=== PATIENT | female | born 1950 | race Caucasian/White ===

== ENCOUNTER 2017-08-06 21:40 | Emergency (ER) | payer MEDICAID, OTHER ==
[~2017-08-06] VITALS: Ht 149.9 cm; Wt 54.4 kg
[2017-08-06 21:43] VITALS: BP_SYST 156
[2017-08-06] MEDS ORDERED: HYDROcodone/ACETAMIN 5-325 MG TAB (NORCO/ VICODIN) PO ONE (22:45)
[2017-08-07] MEDS ORDERED: HYDROcodone/ACETAMIN 5-325 MG TAB (NORCO/ VICODIN) PO ONE (00:15)
[2017-08-07 00:34] VITALS: BP_SYST 142
== END 2017-08-07 00:34 | disposition home or self-care (01) ==
LOC: SED 21:40
DX: S51.812A Laceration without foreign body of left forearm, initial encounter (principal); M06.9 Rheumatoid arthritis, unspecified; M19.90 Unspecified osteoarthritis, unspecified site; W18.09XA Striking against other object with subsequent fall, initial encounter; Y93.01 Activity, walking, marching and hiking; Y92.099 Unspecified place in other non-institutional residence as the place of occurrence of the external cause; Y99.8 Other external cause status
CPT/HCPCS: 73090; 99284

== ENCOUNTER 2019-08-07 00:15 | Inpatient (IN) | payer OTHER ==
[~2019-08-07] VITALS: Ht 149.9 cm; Wt 67.1 kg
[2019-08-07 00:22] VITALS: BP_SYST 109
[2019-08-07] MEDS ORDERED: NACL 0.9% 1,000 ML IV ONE (00:49)
[2019-08-07] MEDS ORDERED: ONDANSETRON HCL 4 MG/2 ML VIAL IVP ONE (01:00)
[2019-08-07] MEDS ORDERED: ACETAMINOPHEN 500 MG TABLET PO ONE (01:00)
[2019-08-07] MEDS ORDERED: CLINDAMYCIN 900 mg/50mL D5W 50 ML IV ONE (01:00)
[2019-08-07] MEDS ORDERED: MORPHINE 4 MG/ML INJ. SYRINGE IVP ONE (01:00)
[2019-08-07 01:44] LABS: HEMOGLOBIN 10.3 g/dL (12.0-16.0); MEAN CORPUSCULAR HEMOGLOBIN 28 pg (27-31); MEAN CORPUSCULAR HGB CONC 33 % (32-36); MEAN CORPUSCULAR VOLUME 84 fL (79.0-98.0); RED BLOOD CELL COUNT(AUTO) 3.69 MIL/uL (4.2-6.2); RED CELL DISTRIBUTION WIDTH 23.1 % (9.0-15.0); WHITE BLOOD COUNT (AUTO) 3.7 K/uL (4.8-10.8)
[2019-08-07 01:45] LABS: INR 1.1 (0.8-1.2); PROTHROMBIN TIME 11.2 SECS (9.5-12.5)
[2019-08-07 01:59] LABS: CALCIUM 8.7 mg/dL (8.4-11.0); CREATININE 1.67 mg/dL (0.55-1.30)
[2019-08-07 02:04] LABS: ALBUMIN 2.5 g/dL (3.4-4.8); C-REACTIVE PROTEIN QUANT 0.6 mg/dL (0-0.5)
[2019-08-07 02:26] LABS: BAND % (MANUAL) 23 % (0-6); PLATELET COUNT (AUTO) 76 K/uL (130-430)
[2019-08-07 02:27] LABS: ATYPICAL LYMPHOCYTES % 0 % (0-0); BASOPHILS % (MANUAL) 0 % (0-2); EOSINOPHILS % (MANUAL) 1 % (0-7); LYMPHOCYTES % (MANUAL) 12 % (20-46); MONOCYTES % (MANUAL) 9 % (0-11); PROMYELOCYTES % 1 % (0-0)
[2019-08-07] MEDS ORDERED: MORPHINE 4 MG/ML INJ. SYRINGE IVP PRN (05:00)
[2019-08-07] MEDS ORDERED: cefTRIAXone 1 GM IVPB PREMIX 50 ML IV SCH (05:00)
[2019-08-07] MEDS ORDERED: MORPHINE 2 MG/ML INJ. SYRINGE IVP PRN (05:00)
[2019-08-07] MEDS ORDERED: ALBUTEROL SULFATE 0.083% 2.5 MG/3 ML VIAL.NEB INH PRN (05:00)
[2019-08-07] MEDS ORDERED: ONDANSETRON HCL 4 MG/2 ML VIAL IVP PRN ×3 (05:00→21:30)
[2019-08-07] MEDS: NORMAL SALINE 5 ML DISP.SYRIN IVF SCH ×3 (06:12→22:32)
[2019-08-07 07:40] VITALS: BP_SYST 86
[2019-08-07 07:45] VITALS: BP_SYST 86
[2019-08-07] MEDS ORDERED: HYDR-4272 PO (08:43)
[2019-08-07] MEDS ORDERED: FERR-69 PO (08:43)
[2019-08-07] MEDS ORDERED: PRED5TAB PO (08:43)
[2019-08-07] MEDS ORDERED: CHOL20004 PO (08:43)
[2019-08-07] MEDS ORDERED: OMEP20CA11 PO (08:43)
[2019-08-07] MEDS ORDERED: FOLI-43 PO (08:43)
[2019-08-07] MEDS ORDERED: LACT10SO6 PO (08:50)
[2019-08-07] MEDS ORDERED: LOSA50TA3 PO (08:50)
[2019-08-07 09:45] LABS: HEMATOCRIT 27.2 % (36-48); LYMPHOCYTES # (AUTO) 0.4 K/uL (1.0-5.5); LYMPHOCYTES % (AUTO) 11.5 % (20.5-51.5); MEAN CORPUSCULAR HEMOGLOBIN 28 pg (27-31); MEAN CORPUSCULAR HGB CONC 33 % (32-36); MONOCYTES # (AUTO) 0.3 K/uL (0.0-1.0); MONOCYTES % (AUTO) 7.1 % (1.7-9.3); NEUTROPHILS # (AUTO) 3.1 K/uL (1.8-7.7); NEUTROPHILS % (AUTO) 81.4 % (40.0-70.0); RED BLOOD CELL COUNT(AUTO) 3.18 MIL/uL (4.2-6.2); RED CELL DISTRIBUTION WIDTH 22.3 % (9.0-15.0); WHITE BLOOD COUNT (AUTO) 3.8 K/uL (4.8-10.8)
[2019-08-07 09:55] LABS: MEAN CORPUSCULAR VOLUME 85 fL (79.0-98.0); PLATELET COUNT (AUTO) 51 K/uL (130-430)
[2019-08-07 11:11] LABS: POTASSIUM 4.5 mmol/L (3.5-5.1)
[2019-08-07 11:12] LABS: CALCIUM 7.9 mg/dL (8.4-11.0); CREATININE 2.1 mg/dL (0.55-1.30); TOTAL BILIRUBIN 1.7 mg/dL (0.0-1.0)
[2019-08-07 11:13] LABS: ALBUMIN 1.7 g/dL (3.4-4.8)
[2019-08-07] MEDS: ALBUMIN HUMAN 25% 100 ML IV SCH ×3 (11:22→22:36)
[2019-08-07] MEDS ORDERED: D5 IV ONE (11:40)
[2019-08-07] MEDS ORDERED: NACL IV ONE (11:40)
[2019-08-07] MEDS ORDERED: MIDAZOLAM HCL 5 MG/5 ML VIAL IVP ONE ×3 (11:40→19:55)
[2019-08-07 12:31] VITALS: BP_SYST 83
[2019-08-07] MEDS: PIPERACILLIN/TAZO 2.25G/DEX-IS 50 ML IV SCH ×2 (14:20→22:37)
[2019-08-07] MEDS: CLINDAMYCIN 300 MG in D5W 50 ML IV SCH ×2 (14:21→18:57)
[2019-08-07] MEDS ORDERED: FUROSEMIDE 20 MG/2 ML VIAL IVP ONE (15:15)
[2019-08-07] MEDS ORDERED: CITRIC ACID/SODIUM CITRATE 30 ML UDC PO ONE (15:30)
[2019-08-07 16:35] VITALS: BP_SYST 87
[2019-08-07 16:45] LABS: BILIRUBIN,URINE 1+ (NEGATIVE); BLOOD, URINE NEGATIVE (NEGATIVE); CLARITY/URINE SL CLOUDY (CLEAR); COLOR,URINE YELLOW (YELLOW); GLUCOSE,URINE NEGATIVE (NEGATIVE); KETONES,URINE TRACE (NEGATIVE); LEUKOCYTE ESTERASE ,URINE NEGATIVE (NEGATIVE); NITRITE, URINE NEGATIVE (NEGATIVE); PH,URINE 5.5 (5.0-8.0); PROTEIN URINE NEGATIVE (NEGATIVE); UROBILINOGEN,URINE 0.2 (0.2-1.0)
[2019-08-07] MEDS ORDERED: NS IRRIG SOLN 1000 ML IR ONE ×2 (16:50→19:55)
[2019-08-07] MEDS ORDERED: fentaNYL CITRATE/PF 100 MCG/2 ML AMP IVP ONE ×2 (16:50→19:55)
[2019-08-07] MEDS ORDERED: PROPOFOL 200MG/ 20ML VIAL (DIPRIVAN) IV ONE ×2 (16:50→19:55)
[2019-08-07] MEDS ORDERED: LR 1,000 ML IV.SOLN IV ONE ×2 (16:50→19:55)
[2019-08-07] MEDS ORDERED: SEVOFLURANE 15 MIN GAS INH ONE ×2 (16:50→19:55)
[2019-08-07 17:07] LABS: RBC,URINE 0-3 /HPF (0-3)
[2019-08-07 17:08] LABS: BACTERIA,URINE MANY /HPF (None Seen)
[2019-08-07 17:09] LABS: MUCUS,URINE 1+ /LPF (None Seen); OTHER CASTS, URINE WBC CASTS 1+ /LPF (None Seen)
[2019-08-07] MEDS ORDERED: BUPIVACAINE /PF 0.5% 30 ML VIAL INJ ONE (19:55)
[2019-08-07] MEDS ORDERED: fentaNYL CITRATE/PF 100 MCG/2 ML AMP IVP PRN ×2 (20:15)
[2019-08-07] MEDS ORDERED: HYDROcodone/ACETAMIN 5-325 MG TAB (NORCO/ VICODIN) PO PRN (21:30)
[2019-08-07] MEDS ORDERED: ACETAMINOPHEN 325 MG TABLET PO PRN (21:30)
[2019-08-07 21:35] LABS: CHLORIDE,URINE RANDOM 32 mmol/L (55-125); URINE SODIUM, RANDOM 16 mmol/L (40-220)
[2019-08-07] MEDS ORDERED: NS 500 ML IV ONE (21:45)
[2019-08-07] MEDS: CITRIC ACID/SODIUM CITRATE 30 ML UDC PO SCH (22:32)
[2019-08-07] MEDS: D5NS 1,000 ML IV SCH (22:36)
[2019-08-07 23:15] VITALS: BP_SYST 109
[2019-08-08] VITALS (24 sets, daily range): BP systolic 87–141
[2019-08-08] MEDS: PIPERACILLIN/TAZO 2.25G/DEX-IS 50 ML IV SCH ×4 (00:54→17:53)
[2019-08-08] MEDS: MORPHINE 4 MG/ML INJ. SYRINGE IVP PRN (03:05)
[2019-08-08] MEDS ORDERED: NACL 0.9% 1,000 ML IV ONE (03:45)
[2019-08-08 05:40] LABS: LYMPHOCYTES # (AUTO) 0.5 K/uL (1.0-5.5); MONOCYTES # (AUTO) 0.2 K/uL (0.0-1.0)
[2019-08-08 05:44] LABS: BASOPHILS % (AUTO) 0.3 % (0.0-2.0); EOSINOPHILS % (AUTO) 0.7 % (0.0-4.0); LYMPHOCYTES % (AUTO) 10.6 % (20.5-51.5); MEAN CORPUSCULAR HEMOGLOBIN 28 pg (27-31); MEAN CORPUSCULAR HGB CONC 33 % (32-36); MEAN CORPUSCULAR VOLUME 85 fL (79.0-98.0); MONOCYTES % (AUTO) 4.5 % (1.7-9.3); NEUTROPHILS # (AUTO) 3.9 K/uL (1.8-7.7); NEUTROPHILS % (AUTO) 83.9 % (40.0-70.0); RED BLOOD CELL COUNT(AUTO) 2.36 MIL/uL (4.2-6.2); RED CELL DISTRIBUTION WIDTH 23.1 % (9.0-15.0); WHITE BLOOD COUNT (AUTO) 4.7 K/uL (4.8-10.8)
[2019-08-08 05:49] LABS: HEMOGLOBIN 6.6 g/dL (12.0-16.0)
[2019-08-08 05:50] LABS: HEMATOCRIT 20.1 % (36-48); PLATELET COUNT (AUTO) 30 K/uL (130-430)
[2019-08-08 05:51] LABS: ALANINE AMINOTRANSFERASE 19 U/L (12-78); ALBUMIN 2.4 g/dL (3.4-4.8); ANION GAP 10 (5-15); ASPARTATE AMINOTRANSFERASE 35 U/L (10-37); CALCIUM 7.2 mg/dL (8.4-11.0); CHLORIDE 98 mmol/L (98-107); CREATININE 2.69 mg/dL (0.55-1.30); GLUCOSE 73 mg/dL (70-99); POTASSIUM 5.2 mmol/L (3.5-5.1); SODIUM SERUM 126 mmol/L (136-145); TOTAL BILIRUBIN 2.9 mg/dL (0.0-1.0); UREA NITROGEN, BLOOD 33 mg/dL (8-21)
[2019-08-08] MEDS: NORMAL SALINE 5 ML DISP.SYRIN IVF SCH ×3 (06:07→21:22)
[2019-08-08] MEDS: CLINDAMYCIN 300 MG in D5W 50 ML IV SCH ×5 (06:07→18:43)
[2019-08-08] MEDS ORDERED: ENOXAPARIN SODIUM 40 MG/0.4 ML SYRINGE SUBCUT SCH (09:00)
[2019-08-08] MEDS ORDERED: BUMEX 1 MG/4 ML VIAL IVP ONE (09:45)
[2019-08-08] MEDS: CITRIC ACID/SODIUM CITRATE 30 ML UDC PO SCH ×2 (10:27→21:21)
[2019-08-08] MEDS: D5NS 1,000 ML IV SCH ×2 (10:40→17:25)
[2019-08-08] MEDS: HYDROmorphone 2 MG/ML VIAL IVP PRN ×2 (13:19→23:27)
[2019-08-08] MEDS ORDERED: HEPARIN SODIUM,PORCINE 5000 UNITS/ML VIAL ONE (14:48)
[2019-08-08] MEDS ORDERED: NOREPINEPHRINE BITARTRATE 4 MG in D5W 246 ML IV PRN (19:45)
[2019-08-09] VITALS (20 sets, daily range): BP systolic 93–159
[2019-08-09] MEDS: PIPERACILLIN/TAZO 2.25G/DEX-IS 50 ML IV SCH ×4 (00:25→18:45)
[2019-08-09] MEDS: CLINDAMYCIN 300 MG in D5W 50 ML IV SCH ×4 (00:25→17:39)
[2019-08-09] MEDS: HYDROmorphone 2 MG/ML VIAL IVP PRN (05:27)
[2019-08-09 05:46] LABS: BASOPHILS % (AUTO) 0.4 % (0.0-2.0); EOSINOPHILS # (AUTO) 0.2 K/uL (0.0-0.4); EOSINOPHILS % (AUTO) 1.7 % (0.0-4.0); HEMATOCRIT 30.5 % (36-48); HEMOGLOBIN 10.6 g/dL (12.0-16.0); LYMPHOCYTES # (AUTO) 0.6 K/uL (1.0-5.5); LYMPHOCYTES % (AUTO) 5.8 % (20.5-51.5); MEAN CORPUSCULAR HEMOGLOBIN 30 pg (27-31); MEAN CORPUSCULAR HGB CONC 35 % (32-36); MEAN CORPUSCULAR VOLUME 86 fL (79.0-98.0); MONOCYTES # (AUTO) 0.5 K/uL (0.0-1.0); MONOCYTES % (AUTO) 4.7 % (1.7-9.3); NEUTROPHILS # (AUTO) 8.9 K/uL (1.8-7.7); NEUTROPHILS % (AUTO) 87.4 % (40.0-70.0); PLATELET COUNT (AUTO) 57 K/uL (130-430); RED BLOOD CELL COUNT(AUTO) 3.56 MIL/uL (4.2-6.2); RED CELL DISTRIBUTION WIDTH 18.7 % (9.0-15.0); WHITE BLOOD COUNT (AUTO) 10.2 K/uL (4.8-10.8)
[2019-08-09] MEDS: D5NS 1,000 ML IV SCH (06:40)
[2019-08-09] MEDS: NORMAL SALINE 5 ML DISP.SYRIN IVF SCH ×3 (06:46→21:21)
[2019-08-09] MEDS: CITRIC ACID/SODIUM CITRATE 30 ML UDC PO SCH ×2 (08:48→21:20)
[2019-08-09] MEDS: ALBUMIN HUMAN 25% 50 ML IV SCH ×3 (08:51→16:42)
[2019-08-09] MEDS ORDERED: NACL 0.9% 1,000 ML IV SCH (12:09)
[2019-08-09] MEDS ORDERED: ONDANSETRON HCL 4 MG/2 ML VIAL IVP PRN (12:15)
[2019-08-09] MEDS: ERYTHROMYCIN 0.5% EYE OINT 3.5 GM OP SCH (21:20)
[2019-08-09] MEDS: MORPHINE 4 MG/ML INJ. SYRINGE IVP PRN (21:21)
[2019-08-10] VITALS (18 sets, daily range): BP systolic 95–131
[2019-08-10] MEDS: CLINDAMYCIN 300 MG in D5W 50 ML IV SCH ×5 (00:24→23:02)
[2019-08-10] MEDS: PIPERACILLIN/TAZO 2.25G/DEX-IS 50 ML IV SCH ×5 (00:24→23:36)
[2019-08-10] MEDS: HYDROmorphone 2 MG/ML VIAL IVP PRN ×2 (00:25→18:00)
[2019-08-10 06:20] LABS: BASOPHILS % (AUTO) 0.5 % (0.0-2.0); EOSINOPHILS # (AUTO) 0.2 K/uL (0.0-0.4); EOSINOPHILS % (AUTO) 2.5 % (0.0-4.0); HEMATOCRIT 31.1 % (36-48); HEMOGLOBIN 10.7 g/dL (12.0-16.0); LYMPHOCYTES # (AUTO) 0.4 K/uL (1.0-5.5); LYMPHOCYTES % (AUTO) 5.9 % (20.5-51.5); MEAN CORPUSCULAR HEMOGLOBIN 30 pg (27-31); MEAN CORPUSCULAR HGB CONC 34 % (32-36); MEAN CORPUSCULAR VOLUME 87 fL (79.0-98.0); MONOCYTES # (AUTO) 0.6 K/uL (0.0-1.0); MONOCYTES % (AUTO) 8.8 % (1.7-9.3); NEUTROPHILS # (AUTO) 5.4 K/uL (1.8-7.7); NEUTROPHILS % (AUTO) 82.3 % (40.0-70.0); RED BLOOD CELL COUNT(AUTO) 3.59 MIL/uL (4.2-6.2); WHITE BLOOD COUNT (AUTO) 6.6 K/uL (4.8-10.8)
[2019-08-10] MEDS: NORMAL SALINE 5 ML DISP.SYRIN IVF SCH ×3 (06:24→22:40)
[2019-08-10 06:25] LABS: ALANINE AMINOTRANSFERASE 18 U/L (12-78); ALBUMIN 2.5 g/dL (3.4-4.8); ANION GAP 7 (5-15); ASPARTATE AMINOTRANSFERASE 36 U/L (10-37); CALCIUM 7.5 mg/dL (8.4-11.0); CHLORIDE 97 mmol/L (98-107); CREATININE 3.07 mg/dL (0.55-1.30); GLUCOSE 75 mg/dL (70-99); PHOSPHORUS 3.7 mg/dL (2.7-4.5); POTASSIUM 3.8 mmol/L (3.5-5.1); SODIUM SERUM 129 mmol/L (136-145); TOTAL BILIRUBIN 8.1 mg/dL (0.0-1.0); UREA NITROGEN, BLOOD 33 mg/dL (8-21)
[2019-08-10 06:28] LABS: PLATELET COUNT (AUTO) 41 K/uL (130-430)
[2019-08-10] MEDS: LACTULOSE 20 GM/30 ML UDC PO SCH ×2 (08:35→22:40)
[2019-08-10] MEDS: CITRIC ACID/SODIUM CITRATE 30 ML UDC PO SCH ×2 (08:36→22:40)
[2019-08-10] MEDS: ERYTHROMYCIN 0.5% EYE OINT 3.5 GM OP SCH ×2 (08:43→22:41)
[2019-08-10] MEDS: MORPHINE 4 MG/ML INJ. SYRINGE IVP PRN (16:31)
[2019-08-11 00:08] VITALS: BP_SYST 106
[2019-08-11] MEDS: CLINDAMYCIN 300 MG in D5W 50 ML IV SCH ×4 (05:11→23:59)
[2019-08-11] MEDS: NORMAL SALINE 5 ML DISP.SYRIN IVF SCH ×3 (06:10→21:52)
[2019-08-11] MEDS: PIPERACILLIN/TAZO 2.25G/DEX-IS 50 ML IV SCH ×3 (06:10→17:13)
[2019-08-11 06:29] LABS: INR 1.3 (0.8-1.2); PROTHROMBIN TIME 13.3 SECS (9.5-12.5)
[2019-08-11 07:12] LABS: ALANINE AMINOTRANSFERASE 14 U/L (12-78); ALBUMIN 2.1 g/dL (3.4-4.8); ANION GAP 7 (5-15); ASPARTATE AMINOTRANSFERASE 31 U/L (10-37); CHLORIDE 100 mmol/L (98-107); CREATININE 2.42 mg/dL (0.55-1.30); GLUCOSE 84 mg/dL (70-99); POTASSIUM 3.3 mmol/L (3.5-5.1); SODIUM SERUM 137 mmol/L (136-145); TOTAL BILIRUBIN 6.5 mg/dL (0.0-1.0); UREA NITROGEN, BLOOD 21 mg/dL (8-21)
[2019-08-11 08:05] LABS: BASOPHILS % (AUTO) 0.6 % (0.0-2.0); EOSINOPHILS # (AUTO) 0.2 K/uL (0.0-0.4); EOSINOPHILS % (AUTO) 4.5 % (0.0-4.0); HEMATOCRIT 28.6 % (36-48); HEMOGLOBIN 9.8 g/dL (12.0-16.0); LYMPHOCYTES # (AUTO) 0.4 K/uL (1.0-5.5); LYMPHOCYTES % (AUTO) 11.2 % (20.5-51.5); MEAN CORPUSCULAR HEMOGLOBIN 29 pg (27-31); MEAN CORPUSCULAR HGB CONC 34 % (32-36); MEAN CORPUSCULAR VOLUME 86 fL (79.0-98.0); MONOCYTES # (AUTO) 0.5 K/uL (0.0-1.0); MONOCYTES % (AUTO) 12.9 % (1.7-9.3); NEUTROPHILS # (AUTO) 2.7 K/uL (1.8-7.7); NEUTROPHILS % (AUTO) 70.8 % (40.0-70.0); RED BLOOD CELL COUNT(AUTO) 3.34 MIL/uL (4.2-6.2); RED CELL DISTRIBUTION WIDTH 19.4 % (9.0-15.0); WHITE BLOOD COUNT (AUTO) 3.8 K/uL (4.8-10.8)
[2019-08-11 08:30] VITALS: BP_SYST 129
[2019-08-11 08:35] LABS: PLATELET COUNT (AUTO) 49 K/uL (130-430)
[2019-08-11] MEDS: LACTULOSE 20 GM/30 ML UDC PO SCH ×2 (09:02→21:51)
[2019-08-11] MEDS: CITRIC ACID/SODIUM CITRATE 30 ML UDC PO SCH ×2 (09:03→21:52)
[2019-08-11] MEDS: ERYTHROMYCIN 0.5% EYE OINT 3.5 GM OP SCH ×2 (09:03→21:54)
[2019-08-11] MEDS ORDERED: POTASSIUM CHLORIDE 20 MEQ TAB.PRT.SR PO ONE (11:45)
[2019-08-11 12:20] VITALS: BP_SYST 117
[2019-08-11 16:15] VITALS: BP_SYST 120
[2019-08-11] MEDS: MORPHINE 4 MG/ML INJ. SYRINGE IVP PRN (17:08)
[2019-08-11 20:00] VITALS: BP_SYST 108
[2019-08-11] MEDS: HYDROmorphone 2 MG/ML VIAL IVP PRN (21:57)
[2019-08-11 23:36] VITALS: BP_SYST 119
[2019-08-12] MEDS: PIPERACILLIN/TAZO 2.25G/DEX-IS 50 ML IV SCH ×4 (00:37→17:45)
[2019-08-12 04:30] VITALS: BP_SYST 122
[2019-08-12] MEDS: MORPHINE 4 MG/ML INJ. SYRINGE IVP PRN (04:52)
[2019-08-12] MEDS: CLINDAMYCIN 300 MG in D5W 50 ML IV SCH (05:05)
[2019-08-12] MEDS: NORMAL SALINE 5 ML DISP.SYRIN IVF SCH ×3 (05:57→21:54)
[2019-08-12 08:12] VITALS: BP_SYST 109
[2019-08-12] MEDS: LACTULOSE 20 GM/30 ML UDC PO SCH ×2 (09:00→20:58)
[2019-08-12] MEDS: CITRIC ACID/SODIUM CITRATE 30 ML UDC PO SCH ×2 (09:00→20:58)
[2019-08-12] MEDS: ERYTHROMYCIN 0.5% EYE OINT 3.5 GM OP SCH ×2 (11:29→21:54)
[2019-08-12 12:13] VITALS: BP_SYST 127
[2019-08-12 12:14] LABS: ANION GAP 5 (5-15); CALCIUM 8.4 mg/dL (8.4-11.0); CHLORIDE 96 mmol/L (98-107); CREATININE 2.71 mg/dL (0.55-1.30); GLUCOSE 77 mg/dL (70-99); POTASSIUM 3.7 mmol/L (3.5-5.1); SODIUM SERUM 130 mmol/L (136-145); UREA NITROGEN, BLOOD 36 mg/dL (8-21)
[2019-08-12] MEDS ORDERED: D5/0.45 NS 1,000 ML IV SCH (15:30)
[2019-08-12 16:45] VITALS: BP_SYST 120
[2019-08-12] MEDS ORDERED: fentaNYL CITRATE/PF 100 MCG/2 ML AMP IVP PRN ×2 (17:45)
[2019-08-12 19:45] VITALS: BP_SYST 150
[2019-08-12 20:00] VITALS: BP_SYST 138
[2019-08-13 00:13] VITALS: BP_SYST 133
[2019-08-13] MEDS: PIPERACILLIN/TAZO 2.25G/DEX-IS 50 ML IV SCH ×5 (00:22→23:53)
[2019-08-13] MEDS: NORMAL SALINE 5 ML DISP.SYRIN IVF SCH ×3 (05:20→20:43)
[2019-08-13 06:21] LABS: BASOPHILS % (AUTO) 0.7 % (0.0-2.0); EOSINOPHILS # (AUTO) 0.1 K/uL (0.0-0.4); EOSINOPHILS % (AUTO) 2.8 % (0.0-4.0); HEMOGLOBIN 9.2 g/dL (12.0-16.0); LYMPHOCYTES # (AUTO) 0.5 K/uL (1.0-5.5); LYMPHOCYTES % (AUTO) 9.6 % (20.5-51.5); MEAN CORPUSCULAR HEMOGLOBIN 29 pg (27-31); MEAN CORPUSCULAR HGB CONC 34 % (32-36); MEAN CORPUSCULAR VOLUME 86 fL (79.0-98.0); MONOCYTES # (AUTO) 0.4 K/uL (0.0-1.0); MONOCYTES % (AUTO) 7.5 % (1.7-9.3); NEUTROPHILS # (AUTO) 3.9 K/uL (1.8-7.7); NEUTROPHILS % (AUTO) 79.4 % (40.0-70.0); RED BLOOD CELL COUNT(AUTO) 3.15 MIL/uL (4.2-6.2); RED CELL DISTRIBUTION WIDTH 18.6 % (9.0-15.0)
[2019-08-13 06:24] LABS: ALANINE AMINOTRANSFERASE 10 U/L (12-78); ALBUMIN 1.7 g/dL (3.4-4.8); ANION GAP 3 (5-15); ASPARTATE AMINOTRANSFERASE 24 U/L (10-37); CALCIUM 8.2 mg/dL (8.4-11.0); CHLORIDE 99 mmol/L (98-107); CREATININE 2.47 mg/dL (0.55-1.30); GLUCOSE 79 mg/dL (70-99); POTASSIUM 3.9 mmol/L (3.5-5.1); SODIUM SERUM 131 mmol/L (136-145); UREA NITROGEN, BLOOD 39 mg/dL (8-21)
[2019-08-13 07:13] LABS: PLATELET COUNT (AUTO) 32 K/uL (130-430)
[2019-08-13 07:33] VITALS: BP_SYST 114
[2019-08-13] MEDS: LACTULOSE 20 GM/30 ML UDC PO SCH ×2 (09:00→20:43)
[2019-08-13] MEDS: CITRIC ACID/SODIUM CITRATE 30 ML UDC PO SCH ×2 (09:00→20:43)
[2019-08-13] MEDS: ERYTHROMYCIN 0.5% EYE OINT 3.5 GM OP SCH ×2 (11:32→20:44)
[2019-08-13 12:56] VITALS: BP_SYST 113
[2019-08-13] MEDS: MORPHINE 4 MG/ML INJ. SYRINGE IVP PRN ×2 (17:13→20:45)
[2019-08-13 17:30] VITALS: BP_SYST 111
[2019-08-13 20:00] VITALS: BP_SYST 103
[2019-08-14 00:25] VITALS: BP_SYST 112
[2019-08-14] MEDS: MORPHINE 4 MG/ML INJ. SYRINGE IVP PRN ×2 (01:41→21:23)
[2019-08-14] MEDS: PIPERACILLIN/TAZO 2.25G/DEX-IS 50 ML IV SCH ×3 (05:55→17:01)
[2019-08-14] MEDS: NORMAL SALINE 5 ML DISP.SYRIN IVF SCH ×3 (05:55→21:16)
[2019-08-14 06:26] LABS: ANION GAP 6 (5-15); CALCIUM 7.7 mg/dL (8.4-11.0); CHLORIDE 97 mmol/L (98-107); GLUCOSE 120 mg/dL (70-99); POTASSIUM 3.1 mmol/L (3.5-5.1); SODIUM SERUM 132 mmol/L (136-145); UREA NITROGEN, BLOOD 22 mg/dL (8-21)
[2019-08-14 08:00] VITALS: BP_SYST 133
[2019-08-14] MEDS: LACTULOSE 20 GM/30 ML UDC PO SCH ×2 (08:48→21:15)
[2019-08-14] MEDS: CITRIC ACID/SODIUM CITRATE 30 ML UDC PO SCH ×2 (08:49→21:15)
[2019-08-14] MEDS: ERYTHROMYCIN 0.5% EYE OINT 3.5 GM OP SCH ×2 (08:50→21:16)
[2019-08-14 12:36] VITALS: BP_SYST 133
[2019-08-14] MEDS ORDERED: POTASSIUM CHLORIDE 20 MEQ TAB.PRT.SR PO ONE (16:15)
[2019-08-14 16:50] VITALS: BP_SYST 125
[2019-08-14] MEDS: HYDROmorphone 2 MG/ML VIAL IVP PRN (17:23)
[2019-08-14 20:30] VITALS: BP_SYST 120
[2019-08-14 23:43] VITALS: BP_SYST 128
[2019-08-15] MEDS: PIPERACILLIN/TAZO 2.25G/DEX-IS 50 ML IV SCH ×4 (00:05→17:39)
[2019-08-15] MEDS: NORMAL SALINE 5 ML DISP.SYRIN IVF SCH ×2 (05:08→14:00)
[2019-08-15 07:12] LABS: ANION GAP 3 (5-15); CALCIUM 8.6 mg/dL (8.4-11.0); CHLORIDE 99 mmol/L (98-107); CREATININE 2.03 mg/dL (0.55-1.30); GLUCOSE 118 mg/dL (70-99); PHOSPHORUS 3.2 mg/dL (2.7-4.5); SODIUM SERUM 134 mmol/L (136-145); UREA NITROGEN, BLOOD 28 mg/dL (8-21)
[2019-08-15 08:00] VITALS: BP_SYST 134
[2019-08-15] MEDS: LACTULOSE 20 GM/30 ML UDC PO SCH (08:27)
[2019-08-15] MEDS: ERYTHROMYCIN 0.5% EYE OINT 3.5 GM OP SCH (08:27)
[2019-08-15] MEDS: CITRIC ACID/SODIUM CITRATE 30 ML UDC PO SCH (08:27)
[2019-08-15] MEDS: MORPHINE 4 MG/ML INJ. SYRINGE IVP PRN (10:13)
[2019-08-15] MEDS ORDERED: PANTOPRAZOLE SODIUM 40 MG TAB PO ONE (11:00)
[2019-08-15] MEDS ORDERED: MORPHINE SULFATE 10 MG/ML VIAL IVP PRN (12:51)
[2019-08-15 12:52] VITALS: BP_SYST 135
[2019-08-15 16:17] VITALS: BP_SYST 124
[2019-08-15] MEDS ORDERED: MAGNESIUM SULFATE/D5W 100 ML IV ONE (16:30)
[2019-08-15 16:41] VITALS: BP_SYST 124
[2019-08-15 20:00] VITALS: BP_SYST 122
[2019-08-15] MEDS ORDERED: PANTOPRAZOLE SODIUM 40 MG TAB PO SCH (21:00)
== END 2019-08-15 21:00 | DRG 853 ==
LOC: SED 00:15 → STU 02:20 → SIC 21:59 → STU 08-10 17:39
PROVIDERS: ADMIT Internal Medicine Hospice and Palliative Medicine; ATTEND Internal Medicine Hospice and Palliative Medicine
PROC: 0KNS0ZZ Release Right Lower Leg Muscle, Open Approach (ICD-10-PCS; 2019-08-07)
PROC: 0KNS0ZZ Release Right Lower Leg Muscle, Open Approach (ICD-10-PCS; 2019-08-07)
PROC: 0KNS0ZZ Release Right Lower Leg Muscle, Open Approach (ICD-10-PCS; 2019-08-07)
PROC: 0KNS0ZZ Release Right Lower Leg Muscle, Open Approach (ICD-10-PCS; 2019-08-07)
PROC: 0KNV0ZZ Release Right Foot Muscle, Open Approach (ICD-10-PCS; principal; 2019-08-07 20:00)
PROC: 02HV33Z Insertion of Infusion Device into Superior Vena Cava, Percutaneous Approach (ICD-10-PCS; 2019-08-08)
PROC: B548ZZA Ultrasonography of Superior Vena Cava, Guidance (ICD-10-PCS; 2019-08-08)
PROC: 30233R1 Transfusion of Nonautologous Platelets into Peripheral Vein, Percutaneous Approach (ICD-10-PCS; 2019-08-08)
PROC: 30233N1 Transfusion of Nonautologous Red Blood Cells into Peripheral Vein, Percutaneous Approach (ICD-10-PCS; 2019-08-08)
PROC: 5A1D70Z Performance of Urinary Filtration, Intermittent, Less than 6 Hours Per Day (ICD-10-PCS; 2019-08-08)
PROC: 2W0QX6Z Change Pressure Dressing on Right Lower Leg (ICD-10-PCS; 2019-08-09)
PROC: 2W0SX6Z Change Pressure Dressing on Right Foot (ICD-10-PCS; 2019-08-09)
PROC: 5A1D70Z Performance of Urinary Filtration, Intermittent, Less than 6 Hours Per Day (ICD-10-PCS; 2019-08-10)
PROC: 0JQQ0ZZ Repair Right Foot Subcutaneous Tissue and Fascia, Open Approach (ICD-10-PCS; 2019-08-12)
PROC: 0JQN0ZZ Repair Right Lower Leg Subcutaneous Tissue and Fascia, Open Approach (ICD-10-PCS; 2019-08-12)
PROC: 5A1D70Z Performance of Urinary Filtration, Intermittent, Less than 6 Hours Per Day (ICD-10-PCS; 2019-08-13)
DX: A41.9 Sepsis, unspecified organism (principal); N17.0 Acute kidney failure with tubular necrosis; M72.6 Necrotizing fasciitis; L03.115 Cellulitis of right lower limb; D61.818 Other pancytopenia; E87.1 Hypo-osmolality and hyponatremia; T79.A21A Traumatic compartment syndrome of right lower extremity, initial encounter; E87.2 Acidosis; K75.4 Autoimmune hepatitis; E88.09 Other disorders of plasma-protein metabolism, not elsewhere classified; I50.9 Heart failure, unspecified; I95.9 Hypotension, unspecified; E87.6 Hypokalemia; K74.60 Unspecified cirrhosis of liver; M06.9 Rheumatoid arthritis, unspecified; Z83.3 Family history of diabetes mellitus; Z79.899 Other long term (current) drug therapy; Y92.89 Other specified places as the place of occurrence of the external cause; F17.210 Nicotine dependence, cigarettes, uncomplicated
CPT/HCPCS: 36415; 71045; 73552; 73590-TC; 73700-TC; 76770; 80048; 80053; 81000-TC; 82140-TC; 82150-TC; 82435-TC; 82550-TC; 82570-TC; 83605; 83690-TC; 83735-TC; 83880; 83930-TC; 84100-TC; 84302-TC; 84484; 85007; 85025; 85027; 85610-TC; 85651-TC; 85730-TC; 86140; 86886; 86900; 86901; 86920; 87040-TC; 87070-TC; 87075-TC; 87081; 90935; 90937; 93005; 93306; 93971; 94760; 96361; 96365; 96367; 96375; 99285; C1751; G0378; J0696; J1170; J1644; J1940; J2250; J2270; J2405; J2543; J2704; J3010; J3490; J7030; J7040; J7042; J7050; J7060; J7120; P9021; P9034; P9046